=== PATIENT | female | born 1990 | race Hispanic/Latino ===

== ENCOUNTER 2020-11-21 18:04 | Emergency (ER) | payer BC ==
[~2020-11-21] VITALS: Ht 157.5 cm; Wt 65.8 kg
== END 2020-11-21 19:16 | disposition home or self-care (01) ==
LOC: ED 18:04
DX: R10.30 Lower abdominal pain, unspecified (principal)
CPT/HCPCS: 80053; 81001; 83690; 84703; 85025; 99284